=== PATIENT | male | born 1935 | race Caucasian/White ===

== ENCOUNTER 2019-05-26 16:01 | Inpatient (IN) | payer MEDICARE, OTHER ==
[~2019-05-26] VITALS: Ht 167.6 cm; Wt 52.2 kg
--- NOTE | 2019-05-26 16:29 | NUR ---
PT TRANSFERRED FROM [place], HAS N/V X 5 DAYS, HISTORY OF PANCREATITIS. PT IS A+O X3, NO VOMITTING AT THIS TIME.
[2019-05-26 18:15] LABS: HEMATOCRIT 39.3 % (42.0-54.0); HEMOGLOBIN 13.3 g/dL (13.5-17.5); MCH 30.9 pg (26.0-34.0); MCHC 33.8 g/dL (31.0-37.0); MCV 91.2 fL (80.0-100.0); MEAN PLATELET VOLUME 9.9 fL (7.4-10.4); PLATELET COUNT 181 10x3/uL (130-400); RBC 4.31 10x6/uL (4.20-6.10); RDW 15.3 % (11.5-14.5); WBC 6.4 10x3/uL (4.8-10.8)
[2019-05-26 18:34] LABS: ALBUMIN 2.4 g/dL (3.4-5.0); ANION GAP 13.7 mmol/L (8-16); BILIRUBIN - TOTAL 0.9 mg/dL (0.2-1.3); CALCIUM 8.5 mg/dL (8.5-10.1); CARBON DIOXIDE 22.8 mmol/L (21.0-32.0); CREATININE - SERUM 1.4 mg/dL (0.6-1.3); PROTEIN - SERUM 5.6 g/dL (6.4-8.2); TROPONIN-I 0.022 ng/mL (0.000-0.060)
[2019-05-26 18:36] LABS: POTASSIUM - SERUM 2.5 mmol/L (3.5-5.1)
[2019-05-26 18:40] LABS: IMMATURE GRANULOCYTES 1.1 % (0-5)
[2019-05-26 19:11] LABS: EOSINOPHILS 4 % (0-7); LYMPHOCYTES 22 % (15-50); MONOCYTES 4 % (2-11); NEUTROPHILS 70 % (40-80); PLATELET ESTIMATE NORMAL
[2019-05-26 21:56] VITALS: BP 107/71
--- NOTE | 2019-05-26 22:35 | NUR ---
RECEIVED PT FROM ER VIA STRETCHER. ALERT AND ORIENTED X4. GEN WEAKNESS NOTED. RESP EVEN AND NONLABORED. HICCUPS NOTED. DENIES ABD PAIN AT THIS TIME. STATES HE HAS BEEN VOMITING FOR DAYS AND DIARRHEA STARTED TODAY. MVI INFUSING @ 125 MLHR VIA RT CHESTWALL INFUSAPORT. SALINE LOCK NOTED TO LT FOREARM. PT ACCOMPANIED BY AND DAUGHTER. HAS DIFF SWALLOWING. HAD CHEMO ON 05-14-19 AND IS DUE AGAIN THIS SUNDAY. ABM WITH ASSIST X1. GAIT UNSTEADY. DANISH ALARM ON. CL IN REACH. NO DISTRESS.
[2019-05-26] MEDS ORDERED: CREON DR 24,001 EACH PO (22:43)
[2019-05-26] MEDS ORDERED: ZOFRAN8 MG (22:45)
[2019-05-26] MEDS ORDERED: DILAUDID2 MG (22:46)
[2019-05-26] MEDS ORDERED: PHENERGAN25 M1 PO (22:47)
[2019-05-26] MEDS ORDERED: OXYCONTIN10 MG PO (22:48)
[2019-05-26] MEDS ORDERED: HYDROCODON-ACE1 EAC7 PO (22:49)
[2019-05-26] MEDS ORDERED: NORVASC5 MG PO (22:50)
[2019-05-26] MEDS ORDERED: MARINOL2.5 MG PO (22:51)
[2019-05-26 23:56] LABS: APPEARANCE CLEAR (CLEAR); BILIRUBIN NEGATIVE (NEGATIVE); COLOR DK YELLOW (YELLOW); GLUCOSE NEGATIVE (NEGATIVE); KETONE NEGATIVE (NEGATIVE); NITRITE NEGATIVE (NEGATIVE); PROTEIN 2+ mg/dL (NEGATIVE); UROBILINOGEN NORMAL (NORMAL)
[2019-05-26 23:57] LABS: BACTERIA FEW /hpf (NEGATIVE); EPITHELIAL CELLS 0-5 /hpf (0-5); RED CELLS - URINE NONE SEEN /hpf (0-5); WHITE CELLS - URINE 0-5 /hpf (NEGATIVE)
[2019-05-27 01:47] VITALS: BP 124/64; BMI 18.6
--- NOTE | 2019-05-27 02:08 | NUR ---
AWAKE. LYING IN BED. RESP EVEN AND NONLABORED. AT BEDSIDE. NO DISTRESS. CL IN REACH.
--- NOTE | 2019-05-27 02:45 | NUR ---
RECEIVED CT RESULTS. NOTIFIED BISHOP RAPP.
--- NOTE | 2019-05-27 03:41 | NUR ---
C/O BACK PAIN RATING 8-9 ON PAIN SCALE. MEDICATED WITH MORPHINE ORDERED. TALKATIVE WITH STAFF. AT BEDSIDE. SR ELEVATED X2. CL IN REACH.
[2019-05-27 04:53] LABS: HEMATOCRIT 35.4 % (42.0-54.0); HEMOGLOBIN 12.1 g/dL (13.5-17.5); MCH 30.7 pg (26.0-34.0); MCHC 34.2 g/dL (31.0-37.0); MCV 89.8 fL (80.0-100.0); PLATELET COUNT 163 10x3/uL (130-400); RBC 3.94 10x6/uL (4.20-6.10); RDW 15.1 % (11.5-14.5); WBC 5.6 10x3/uL (4.8-10.8)
[2019-05-27 04:56] VITALS: BP 108/72
[2019-05-27 05:10] LABS: ALBUMIN 2.3 g/dL (3.4-5.0); ALKALINE PHOSPHATASE 91 U/L (46-116); ALT (SGPT) 23 U/L (10-68); APTT 28.8 SECONDS (22.8-39.4); BILIRUBIN - TOTAL 0.83 mg/dL (0.2-1.3); CALC OSMOLALITY 290 mosm/kg (275-300); CALCIUM 7.7 mg/dL (8.5-10.1); CARBON DIOXIDE 23.4 mmol/L (21.0-32.0); CHLORIDE - SERUM 108 mmol/L (98-107); GLUCOSE 105 mg/dL (74-106); INR 1.27 (0.85-1.17); MAGNESIUM - SERUM 2.6 mg/dL (1.8-2.4); PHOSPHOROUS 2.6 mg/dL (2.5-4.9); PROTIME 15.8 SECONDS (11.6-15.0); SODIUM 143 mmol/L (136-145); UREA NITROGEN 30 mg/dL (7-18)
[2019-05-27 05:22] LABS: eGFR NON AFRICAN AMERICAN 76 mL/min (90-120)
[2019-05-27 05:23] LABS: POTASSIUM - SERUM 2.4 mmol/L (3.5-5.1)
[2019-05-27 07:14] LABS: LYMPHOCYTES 18 % (15-50); MONOCYTES 22 % (2-11); NEUTROPHILS 49 % (40-80)
[2019-05-27 07:15] LABS: PLATELET ESTIMATE NORMAL
--- NOTE | 2019-05-27 08:00 | NUR ---
ASSESSMENT PER FLOW SHEET. PT IS WITHOUT DISTRESS.MONITOR FOR NEEDS.CALL LIGHT IN REACH.
[2019-05-27 09:16] VITALS: BP 108/69
[2019-05-27 13:29] VITALS: BP 104/64
[2019-05-27 13:54] VITALS: Ht 167.6 cm; Wt 52.2 kg
--- NOTE | 2019-05-27 16:58 | NUR ---
FAMILY AT BEDSIDE. PT REMAINS WITHOUT DISTRESS.WITHOUT CHANGE. CONT PLAN OF CARE
[2019-05-27 17:55] VITALS: BP 120/89
[2019-05-27 21:18] VITALS: BP 127/69
[2019-05-28 01:14] VITALS: BP 113/60
--- NOTE | 2019-05-28 03:23 | NUR ---
PT RESTING IN BED. EYES CLOSED. NO SIGNS OF DISTRESS. BREATHING EVEN AND UNLABORED. IV SITE RT CHEST PORT. DRSSING CLEAN DRY AND INTACT. NO SIGNS OF INFECTION. LUNG SOUNDS CLEAR. BOWEL SOUNDS ACTIVE. NO LOWER LEG SWELLING PRESENT. WILL CONTINUE PLAN OF CARE. CALL LIGHT IN REACH. BED LOWERED AND LOCKED. BED RAILS UPX2. DANISH ALARM ON. AT BEDSIDE.
--- NOTE | 2019-05-28 04:02 | NUR ---
I have reviewed this patient and I concur with the Shift Assessment completed by the Licensed Practical Nurse today this shift.
[2019-05-28 05:16] LABS: BASOPHILS 0.2 % (0-2); EOSINOPHILS 0.4 % (0-7); HEMATOCRIT 35.2 % (42.0-54.0); IMMATURE GRANULOCYTES 3.6 % (0-5); LYMPHOCYTES 14.7 % (15-50); MCHC 34.1 g/dL (31.0-37.0); MEAN PLATELET VOLUME 9.7 fL (7.4-10.4); MONOCYTES 24.1 % (2-11); PLATELET COUNT 151 10x3/uL (130-400); RBC 3.87 10x6/uL (4.20-6.10); RDW 15.6 % (11.5-14.5); WBC 4.7 10x3/uL (4.8-10.8)
[2019-05-28 05:31] LABS: ALBUMIN 2.2 g/dL (3.4-5.0); ALKALINE PHOSPHATASE 87 U/L (46-116); ALT (SGPT) 26 U/L (10-68); BILIRUBIN - TOTAL 0.77 mg/dL (0.2-1.3); CALC OSMOLALITY 288 mosm/kg (275-300); CALCIUM 7.8 mg/dL (8.5-10.1); CARBON DIOXIDE 25.1 mmol/L (21.0-32.0); CHLORIDE - SERUM 111 mmol/L (98-107); GLUCOSE 150 mg/dL (74-106); POTASSIUM - SERUM 3.5 mmol/L (3.5-5.1); PROTEIN - SERUM 5.1 g/dL (6.4-8.2); SODIUM 143 mmol/L (136-145); eGFR NON AFRICAN AMERICAN 76 mL/min (90-120)
[2019-05-28 05:47] LABS: MAGNESIUM - SERUM 1.9 mg/dL (1.8-2.4)
[2019-05-28 05:48] LABS: PHOSPHOROUS 1.4 mg/dL (2.5-4.9); UREA NITROGEN 16 mg/dL (7-18)
[2019-05-28 06:06] VITALS: BP 126/76
--- NOTE | 2019-05-28 07:10 | NUR ---
PT RESTING IN BED. NO SIGNS OF DISTRESS. IV TO RIGHT CHEST PORT PATENT NO REDNESS OR TENDERNESS. FALL PRECAUTIONS IN PLACE. DENIES ANY FURTHER NEED AT THIS TIME. CALL LIGHT IN REACH. BED LOW POSITION. FAMILY AT BEDSIDE AT THIS TIME.
[2019-05-28 08:55] VITALS: BP 127/73
--- NOTE | 2019-05-28 09:12 | NUR ---
Due to decreased mobility: HIGH RISK / IMPAIRED SKIN INTEGRITY -TURN/REPOSITION Q 2 HOURS (HOURLY REPOSITIONING IF UP IN CHAIR -FLOAT HEELS OFF MATTRESS/PILLOWS -DAILY AND NEEDED PERSONAL CARE, USING CALMOSEPTINE CREAM IF REDNESS IS NOTED DUE TO INCONTINENCE/MOISTURE -SKIN ASSESSMENT Q SHIFT -CONSULT WOUND CARE IF NON-BLANCHABLE REDNESS OVER BONY PROMINENCES IS NOTED
[2019-05-28 12:55] VITALS: BP 98/59
[2019-05-28 17:33] VITALS: BP 115/70
--- NOTE | 2019-05-28 18:45 | NUR ---
I have reviewed this patient and I concur with the Shift Assessment completed by the Licensed Practical Nurse today this shift.
[2019-05-28 19:30] VITALS: BP 129/78
[2019-05-29 00:30] VITALS: BP 131/72
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
--- NOTE | 2019-05-29 04:08 | NUR ---
I have reviewed this patient and I concur with the Shift Assessment completed by the Licensed Practical Nurse today this shift.
--- NOTE | 2019-05-29 04:59 | NUR ---
PT RESTING IN BED. EYES CLOSED. NO SIGNS OF DISTRESS. BREATHING EVEN AND UNLABORED. IV SITE RT CHEST PORT DRESSING CLEAN DRY AND INTACT. NO SIGNS OF INFECTION. SKIN CLEAN DRY AND INTACT. LUNG SOUNDS CLEAR. BOWEL SOUNDS ACTIVEX4. WILL CONTINUE PLAN OF CARE. CALL LIGHT IN REACH. BED LOWERED AND LOCKED. BED RAILS UPX3. AT BEDSIDE. DANISH ALARM ON.
[2019-05-29 05:03] LABS: BASOPHILS 0.3 % (0-2); EOSINOPHILS 0.7 % (0-7); HEMATOCRIT 35.3 % (42.0-54.0); IMMATURE GRANULOCYTES 3.6 % (0-5); LYMPHOCYTES 19.6 % (15-50); MCH 30.8 pg (26.0-34.0); MCV 90.5 fL (80.0-100.0); MEAN PLATELET VOLUME 10.3 fL (7.4-10.4); MONOCYTES 17.8 % (2-11); PLATELET COUNT 166 10x3/uL (130-400); RDW 15.8 % (11.5-14.5)
[2019-05-29 05:14] LABS: WBC 6.8 10x3/uL (4.8-10.8)
[2019-05-29 05:21] LABS: ALBUMIN 2.2 g/dL (3.4-5.0); ALKALINE PHOSPHATASE 88 U/L (46-116); ALT (SGPT) 26 U/L (10-68); BILIRUBIN - TOTAL 0.81 mg/dL (0.2-1.3); CALCIUM 7.8 mg/dL (8.5-10.1); CARBON DIOXIDE 25.9 mmol/L (21.0-32.0); CHLORIDE - SERUM 109 mmol/L (98-107); CREATININE - SERUM 0.8 mg/dL (0.6-1.3); MAGNESIUM - SERUM 1.7 mg/dL (1.8-2.4); PHOSPHOROUS 1.9 mg/dL (2.5-4.9); POTASSIUM - SERUM 3.2 mmol/L (3.5-5.1); PROTEIN - SERUM 5.1 g/dL (6.4-8.2); SODIUM 142 mmol/L (136-145); eGFR NON AFRICAN AMERICAN > 90 mL/min (90-120)
[2019-05-29 05:22] LABS: CALC OSMOLALITY 280 mosm/kg (275-300); GLUCOSE 90 mg/dL (74-106); UREA NITROGEN 6 mg/dL (7-18)
[2019-05-29 05:26] VITALS: BP 100/52
--- NOTE | 2019-05-29 07:34 | NUR ---
REC'D IN BED WITH EYES CLOSED EASILY TO AROUSED WHEN NAME IS CALLED. EVEN AND UNLABORED WITH NO DISTRESS NOTED. CAN EXPRESS NEEDS AND WANTS. NO C/O NOTED OR VOICED. IV INFUSING TO RT CHEST PORT. ASSESSMENT COMPLETED. BED IN LOWEST POSITION. C/L AND AT BEDSIDE.
[2019-05-29 08:45] VITALS: BP 131/75
--- NOTE | 2019-05-29 09:32 | MORECARE ---
CASE MANAGEMENT DISCHARGE SUMMARY PATIENT: DANYEL VILLARREAL UNIT: [id number] ADM DATE: 05/26/19 AGE: 84 : 37 SEX: M ROOM/BED: D.2228 AUTHOR: DANIEL JETER PHYSICIAN: REFERRING PHYSICIAN: GERARDO ARRIAZA DO DATE OF SERVICE: 05/29/19 Discharge Plan Patient Name: DANYEL VILLARREAL [facility] [facility] 1935 Planned Disposition: Home Anticipated Discharge Date: Discharge Date: Expected LOS: Initial Reviewer: [email or web address] Initial Review Date: 05/29/2019 Generated: 05/29/19 10:31 am DCPIA - Discharge Planning Initial Assessment Updated by [email or web address]: Yessi Rolle on 05/29/19 9:28 am * Is the patient Alert and Oriented? Yes * How many steps to enter\exit or inside your home? 0/0 * PCP Dr. Jayden Grewal in [place] * Pharmacy [facility] in [place] * Preadmission Environment Home with Family * ADLs Partial Dependent * Partial ADLs (Assistance needed) Ambulation * Equipment Walker Wheelchair * List name and contact numbers for known caregivers / representatives who currently or will assist patient after discharge: Shireen Villarreal - spouse - [phone] * Verbal permission to speak to the caregivers and representatives has been obtained from the patient. Yes * Community resources currently utilized None * Additional services required to return to the preadmission environment? No * Can the patient safely return to the preadmission environment? Yes * Has this patient been hospitalized within the prior 30 days at any hospital? No Patient Name: DANYEL VILLARREAL Page [phone] at 0932 All edits/amendments must be made on the electronic document DICTATION DATE: 05/29/19930 V BELT SKIVER: CECI 05/29/19930 RPT#: [id number] DC DATE: STATUS: ADM IN [facility] [address] [place] [address] END OF REPORT
--- NOTE | 2019-05-29 09:39 | MORECARE ---
CASE MANAGEMENT DISCHARGE SUMMARY PATIENT: DANYEL VILLARREAL UNIT: [id number] ADM DATE: 05/26/19 AGE: 84 : 37 SEX: M ROOM/BED: D.2228 AUTHOR: DANIEL JETER PHYSICIAN: REFERRING PHYSICIAN: GERARDO ARRIAZA DO DATE OF SERVICE: 05/29/19 Discharge Plan Patient Name: DANYEL VILLARREAL Facility[facility]:[place] : 1935 Planned Disposition: Home Anticipated Discharge Date: Discharge Date: Expected LOS: Initial Reviewer: [email or web address] Initial Review Date: 05/29/2019 Generated: 05/29/19 10:39 am Comments DCP- Discharge Planning Updated by [email or web address]: Yessi Rolle on 05/29/19 8:[address] Patient Name: DANYEL VILLARREAL Admission Status: ER Accout number: [id number] Admission Date: 05-26-2019 : 1935 Admission Diagnosis: Attending: GERARDO ARRIAZA Current LOS: 3 Anticipated DC Date: Planned Disposition: Home Primary Insurance: MEDICARE A & B Discharge Planning Comments: CM met with patient and his spouse to discuss discharge planning/needs. Permission received to discuss planning with present. States he lives with his spouse in a single story home. Physical address is [address] [place] [address]. He uses a walker at times for ambulation. He is able to drive, but has not driven with his weakness. His spouse drives him to where he needs to go. His plan is to return home and feels this is a safe discharge. CM discussed availability of rehab, SNF, additional DME needs and home health. Denies discharge needs at this time, however states he will consent to home health if needed. States PT is supposed to walk with him today. I gave a list of home health services and will meet with them at a later time. CM will continue to follow and assist with discharge planning/needs. Trauma Counsellor: Yessi Rolle DCPIA - Discharge Planning Initial Assessment Updated by [email or web address]: Yessi Rolle on 05/29/19 9:28 am * Is the patient Alert and Oriented? Yes * How many steps to enter\exit or inside your home? 0/0 * PCP Dr. Jayden Grewal in [place] * Pharmacy [facility] in [place] * Preadmission Environment Home with Family * ADLs Partial Dependent * Partial ADLs (Assistance needed) Ambulation * Equipment Walker Wheelchair * List name and contact numbers for known caregivers / representatives who currently or will assist patient after discharge: Shireen Villarreal - [facility] - [phone] * Verbal permission to speak to the caregivers and representatives has been obtained from the patient. Yes * Community resources currently utilized None * Additional services required to return to the preadmission environment? No * Can the patient safely return to the preadmission environment? Yes * Has this patient been hospitalized within the prior 30 days at any hospital? No Last DP export: 05/29/19 8:32 a Patient Name: DANYEL VILLARREAL Page [phone] at 0939 All edits/amendments must be made on the electronic document DICTATION DATE: 05/29/19937 TABLE SETTER: CECI 05/29/19937 RPT#: [id number] DC DATE: STATUS: ADM IN [facility] [address] [place] [address] END OF REPORT
[2019-05-29 12:26] VITALS: BP 122/73
--- NOTE | 2019-05-29 14:47 | NUR ---
NUTRITION F/U PT TOLERATING FULL LIQUID DIET. 50% T0 75% INTAKE RECENT MEALS. CURRENTLY SLEEPING WITH FAMILY AT BEDSIDE. WILL CONTINUE TO MONITOR. RD FOLLOWING
[2019-05-29 17:02] VITALS: BP 102/60
[2019-05-29 19:30] VITALS: BP 106/62
[2019-05-30 00:30] VITALS: BP 110/67
--- NOTE | 2019-05-30 01:12 | NUR ---
ASSESSED AT THE BEGINNING OF THE SHIFT. PT IS ALERT AND ORIENTED, ABLE TO VOICE HIS NEEDS. IS AT THE BEDSIDE AND SHE HAS BEEN ASSISTING HIM WITH HIS NEEDS. HE HAS A RIGHT CHEST PORT AND IS ALERT AND ORIENTED. NO O2 AT THIS TIME AND HE IS RESTING WELL.
[2019-05-30 04:30] VITALS: BP 118/70
[2019-05-30 06:36] LABS: BASOPHILS 0.1 % (0-2); EOSINOPHILS 0.7 % (0-7); HEMATOCRIT 31.9 % (42.0-54.0); HEMOGLOBIN 10.8 g/dL (13.5-17.5); IMMATURE GRANULOCYTES 2.8 % (0-5); LYMPHOCYTES 16.1 % (15-50); MCH 30.7 pg (26.0-34.0); MCHC 33.9 g/dL (31.0-37.0); MCV 90.6 fL (80.0-100.0); MEAN PLATELET VOLUME 10.1 fL (7.4-10.4); MONOCYTES 13.6 % (2-11); NEUTROPHILS 66.7 % (40-80); PLATELET COUNT 142 10x3/uL (130-400); RBC 3.52 10x6/uL (4.20-6.10); RDW 15.8 % (11.5-14.5); WBC 7.1 10x3/uL (4.8-10.8)
[2019-05-30 06:54] LABS: ALBUMIN 1.9 g/dL (3.4-5.0); ALKALINE PHOSPHATASE 82 U/L (46-116); ALT (SGPT) 24 U/L (10-68); BILIRUBIN - TOTAL 0.74 mg/dL (0.2-1.3); CALCIUM 7.4 mg/dL (8.5-10.1); CHLORIDE - SERUM 107 mmol/L (98-107); CREATININE - SERUM 0.6 mg/dL (0.6-1.3); GLUCOSE 91 mg/dL (74-106); MAGNESIUM - SERUM 1.5 mg/dL (1.8-2.4); PROTEIN - SERUM 4.5 g/dL (6.4-8.2); SODIUM 138 mmol/L (136-145); eGFR NON AFRICAN AMERICAN > 90 mL/min (90-120)
[2019-05-30 06:57] LABS: CALC OSMOLALITY 272 mosm/kg (275-300); POTASSIUM - SERUM 4.1 mmol/L (3.5-5.1); UREA NITROGEN 4 mg/dL (7-18)
--- NOTE | 2019-05-30 07:30 | NUR ---
REC'D IN BED AWAKE AND ALERT AND NO DISTRESS NOTED. CAN VOICE NEEDS AND WANTS WITH NO C/O NOTED. ASSESSMENT COMPLETED. C/L IN REACH AT BEDSIDE.
[2019-05-30 08:53] VITALS: BP 105/60
[2019-05-30] MEDS ORDERED: THORAZINE25 MG PO (11:09)
--- NOTE | 2019-05-30 12:18 | MORECARE ---
CASE MANAGEMENT DISCHARGE SUMMARY PATIENT: DANYEL VILLARREAL UNIT: [id number] ADM DATE: 05/26/19 AGE: 84 : 37 SEX: M ROOM/BED: D.2228 AUTHOR: DANIEL JETER PHYSICIAN: REFERRING PHYSICIAN: GERARDO ARRIAZA DO DATE OF SERVICE: 05/30/19 Discharge Plan Patient Name: DANYEL VILLARREAL Facility: [facility]:[place] : 1935 Planned Disposition: Home Anticipated Discharge Date: Discharge Date: Expected LOS: Initial Reviewer: [email or web address] Initial Review Date: 05/29/2019 Generated: 05/30/19 1:18 pm Comments DCP- Discharge Planning Updated by [email or web address]: Yessi Sariah on 05/30/19 11:[address] Received discharge orders. I spoke with patient and and ARLENE for [facility] in [place] signed. His voiced concerns that he hasn't eaten much solid food and wanted to make sure Dr. Sequeira was OK with him going home. I spoke with Birdie, the patient flow coordinator, and she is going to notify Dr. Sequeira of 's concerns and see if she is ok with discharge. I spoke with Brittney at [facility] in [place], they will see him on Sunday. CM will continue to follow and assist with discharge planning/needs. DCP- Discharge Planning Updated by [id number]: Yessi Hodgedexter on 05/29/19 8:[address] Patient Name: DANYEL VILLARREAL Admission Status: ER Accout number: [id number] Admission Date: 05-26-2019 : 1935 Admission Diagnosis: Attending: GERARDO ARRIAZA Current LOS: 3 Anticipated DC Date: Planned Disposition: Home Primary Insurance: MEDICARE A & B Discharge Planning Comments: CM met with patient and his spouse to discuss discharge planning/needs. Permission received to discuss planning with present. States he lives with his spouse in a single story home. Physical address is [address] [place] [address]. He uses a walker at times for ambulation. He is able to drive, but has not driven with his weakness. His spouse drives him to where he needs to go. His plan is to return home and feels this is a safe discharge. CM discussed availability of rehab, SNF, additional DME needs and home health. Denies discharge needs at this time, however states he will consent to home health if needed. States PT is supposed to walk with him today. I gave a list of home health services and will meet with them at a later time. CM will continue to follow and assist with discharge planning/needs. Travel Ot: Yessi Rolle DCPIA - Discharge Planning Initial Assessment Updated by [email or web address]: Yessi Rolle on 05/29/19 9:28 am * Is the patient Alert and Oriented? Yes * How many steps to enter\exit or inside your home? 0/0 * PCP Dr. Jayden Grewal in [place] * Pharmacy [facility] in [place] * Preadmission Environment Home with Family * ADLs Partial Dependent * Partial ADLs (Assistance needed) Ambulation * Equipment Walker Wheelchair * List name and contact numbers for known caregivers / representatives who currently or will assist patient after discharge: Shireen Villarreal - spouse - [phone] * Verbal permission to speak to the caregivers and representatives has been obtained from the patient. Yes * Community resources currently utilized None * Additional services required to return to the preadmission environment? No * Can the patient safely return to the preadmission environment? Yes * Has this patient been hospitalized within the prior 30 days at any hospital? No External Providers [facility] Next Contact Date: Service Request Date: Service Type: Resolution: Reviewer: Comments: Coverage Notice Reviewer: [email or web address] Vera Rolle Notice Issued Date-Time: 05/30/2019 11:51 Notice Type: IM Discharge Notice Notice Delivered To: Patient Relationship to Patient: Self Platform Material Handler Manager Name: Delivery Method: HAND - Hand Delivered Guadalupe Days: Prior Verbal Notification: Recipient Understood Notice: Yes Recipient Signature: Yes Med Rec Note Co-signed by Attending: Coverage Notice Comment: IMM explained, signed by spouse per patient request, given, copy placed in MR Reviewer: [email or web address] Vera Rolle Notice Issued Date-Time: 05/30/2019 12:00 Notice Type: Patient Choice Letter Notice Delivered To: Family Member Relationship to Patient: Spouse Platform Material Handler Manager Name: Shireen Villarreal Delivery Method: HAND - Hand Delivered Guadalupe Days: Prior Verbal Notification: Recipient Understood Notice: Yes Recipient Signature: Yes Med Rec Note Co-signed by Attending: Coverage Notice Comment: ARLENE for [facility] in [place] Last DP export: 05/29/19 8:39 a Patient Name: DANYEL VILLARREAL Page [phone] at 1218 All edits/amendments must be made on the electronic document DICTATION DATE: 05/30/191217 PLASTICS FABRICATION SUPERVISOR: CECI 05/30/19 1218 RPT#: [id number] DC DATE: STATUS: ADM IN [facility] [address] [place] [address] END OF REPORT
[2019-05-30] MEDS ORDERED: MEDROL DOSE PACK4 MG PO (12:19)
[2019-05-30 13:01] VITALS: BP 105/61
--- NOTE | 2019-05-30 16:38 | NUR ---
DC HOME AT THIS TIME WITH UNDERSTANDING OF DC ORDERS. AT BEDSIDE AND ALSO VOICE UNDERSTANDING WELL. PORT DEASSESSED VIA RN. STABLE CONDITION UPON DEPARTURE.
--- NOTE | 2019-06-02 08:52 | MORECARE ---
CASE MANAGEMENT DISCHARGE SUMMARY PATIENT: DANYEL VILLARREAL UNIT: [id number] ADM DATE: 05/26/19 AGE: 84 : 37 SEX: M ROOM/BED: D.2228 AUTHOR: DANIEL JETER PHYSICIAN: REFERRING PHYSICIAN: GERARDO ARRIAZA DO DATE OF SERVICE: 06/02/19 Discharge Plan Patient Name: DANYEL VILLARREAL Facility: [facility]:[place] : 1935 Planned Disposition: Home Anticipated Discharge Date: Discharge Date: 05/30/2019 Expected LOS: Initial Reviewer: [email or web address] Initial Review Date: 05/29/2019 Generated: 06/02/19 9:51 am Comments DCP- Discharge Planning Updated by [email or web address]: Yessi Sariah on 05/30/19 11:[address] Received discharge orders. I spoke with patient and and ARLENE for [facility] in [place] signed. His voiced concerns that he hasn't eaten much solid food and wanted to make sure Dr. Sequeira was OK with him going home. I spoke with Birdie, the flower planter, and she is going to notify Dr. Sequeira of 's concerns and see if she is ok with discharge. I spoke with Brittney at [facility] in [place], they will see him on Sunday. CM will continue to follow and assist with discharge planning/needs. DCP- Discharge Planning Updated by [email or web address]: Yessi Hodgedexter on 05/29/19 8:[address] Patient Name: DANYEL VILLARREAL Admission Status: ER Accout number: [id number] Admission Date: 05-26-2019 : 1935 Admission Diagnosis: Attending: GERARDO ARRIAZA Current LOS: 3 Anticipated DC Date: Planned Disposition: Home Primary Insurance: MEDICARE A & B Discharge Planning Comments: CM met with patient and his spouse to discuss discharge planning/needs. Permission received to discuss planning with present. States he lives with his spouse in a single story home. Physical address is [address] [place] [address]. He uses a walker at times for ambulation. He is able to drive, but has not driven with his weakness. His spouse drives him to where he needs to go. His plan is to return home and feels this is a safe discharge. CM discussed availability of rehab, SNF, additional DME needs and home health. Denies discharge needs at this time, however states he will consent to home health if needed. States PT is supposed to walk with him today. I gave a list of home health services and will meet with them at a later time. CM will continue to follow and assist with discharge planning/needs. Hospital Pharmacy Technician: Yessi Rolle DCPIA - Discharge Planning Initial Assessment Updated by [email or web address]: Yessi Rolle on 05/29/19 9:28 am * Is the patient Alert and Oriented? Yes * How many steps to enter\exit or inside your home? 0/0 * PCP Dr. Jayden Grewal in [place] * Pharmacy [facility] in [place] * Preadmission Environment Home with Family * ADLs Partial Dependent * Partial ADLs (Assistance needed) Ambulation * Equipment Walker Wheelchair * List name and contact numbers for known caregivers / representatives who currently or will assist patient after discharge: Shireen Villarreal - spouse - [phone] * Verbal permission to speak to the caregivers and representatives has been obtained from the patient. Yes * Community resources currently utilized None * Additional services required to return to the preadmission environment? No * Can the patient safely return to the preadmission environment? Yes * Has this patient been hospitalized within the prior 30 days at any hospital? No Coverage Notice Reviewer: [email or web address] Vera Rolle Notice Issued Date-Time: 05/30/2019 11:51 Notice Type: IM Discharge Notice Notice Delivered To: Patient Relationship to Patient: Self Medical Facilities Section Director Name: Delivery Method: HAND - Hand Delivered Guadalupe Days: Prior Verbal Notification: Recipient Understood Notice: Yes Recipient Signature: Yes Med Rec Note Co-signed by Attending: Coverage Notice Comment: IMM explained, signed by spouse per patient request, given, copy placed in MR Reviewer: [id number] Vera Rolle Notice Issued Date-Time: 05/30/2019 12:00 Notice Type: Patient Choice Letter Notice Delivered To: Family Member Relationship to Patient: Spouse Medical Facilities Section Director Name: Shireen Villarreal Delivery Method: HAND - Hand Delivered Guadalupe Days: Prior Verbal Notification: Recipient Understood Notice: Yes Recipient Signature: Yes Med Rec Note Co-signed by Attending: Coverage Notice Comment: ARLENE for [facility] in [place] Last DP export: 05/30/19 11:18 a Patient Name: DANYEL VILLARREAL Page [phone] at 0852 All edits/amendments must be made on the electronic document DICTATION DATE: 06/02/19850 WEDDING CAKE DESIGNER: CECI 06/02/1949 RPT#: [id number] DC DATE:05/30/19 STATUS: DIS IN [facility] [address] [place] [address] END OF REPORT
== END 2019-05-30 16:43 | disposition home health service (06) | DRG 640 ==
LOC: D.ER 16:01 → D.MS 21:20
PROVIDERS: Family Medicine; ADMIT Family Medicine; ATTEND Family Medicine
DX: E87.6 Hypokalemia (principal); E43 Unspecified severe protein-calorie malnutrition; C25.9 Malignant neoplasm of pancreas, unspecified; N17.9 Acute kidney failure, unspecified; K21.9 Gastro-esophageal reflux disease without esophagitis; E86.0 Dehydration; I10 Essential (primary) hypertension; D64.9 Anemia, unspecified